=== PATIENT | female | born 1945 | race Caucasian/White ===

== ENCOUNTER 2021-09-27 17:15 | Emergency (ER) | payer MEDICARE, SELFPAY ==
[2021-09-27 17:17] VITALS: BP 173/83; PULSE 92; RESP 20; TEMP 36.9; O2SAT 97
--- NOTE | 2021-09-27 17:54 | ED.EYEPROB ---
HPI - Eye Problem General Chief complaint: Eye Problems Stated complaint: visual disturbance Time Seen by Provider: 09/27/21 17:32 History of Present Illness HPI Narrative: 76-year-old female presenting here with sudden visual field loss in right eye, started about an hour ago, denies any headache, states that she just feels a little bit of irritation in her eye. Denies any recent trauma. Has had a history of cataract surgery. No other symptoms, no focal numbness or weakness. chief complaint: vision change Related Data Home Medications Medication Instructions Recorded Confirmed aspirin 81 mg tablet,delayed 81 mg PO DAILY 09/10/21 release cetirizine 10 mg tablet (Zyrtec) 10 mg PO DAILY PRN 09/10/21 levothyroxine 88 mcg capsule 88 mcg PO DAILY 09/10/21 khvytdzhzoun-Bb-cvmc-minerals 18 tablet PO 09/10/21 mg-0.4 mg tablet omeprazole 40 mg capsule,delayed 40 mg PO DAILY 09/10/21 release pravastatin 20 mg tablet 20 mg PO DAILY 09/10/21 prednisone 1 mg tablet 3 mg PO DAILY 09/10/21 Allergies Allergy/AdvReac Type Severity Reaction Status Date / Time latex Allergy Intermediate Unverified 09/02/14 11:23 adhesive Allergy Unknown RASH Verified 09/02/14 11:23 Beef Containing Products Allergy Unknown Hives / Verified 09/02/14 11:23 Red Face BEANS Allergy Unknown Hives / Uncoded 08/06/10 07:31 Red Face OATS Allergy Unknown HIVES Uncoded 08/06/10 07:31 PEARS Allergy Unknown Diarrhea Uncoded 08/06/10 07:31 Review of Systems Review of Systems: CONST: No fever. HEAD: No head trauma EYES: Loss of vision right eye ENT: No facial numbness C/V: No chest pain RESP: No cough GI: No nausea/vomiting M/S: No weakness SKIN: No rash. NEURO: [No focal numbness or weakness] PSYCH: [No depression] [facility] Past Medical History Medical History Arthritis GERD (gastroesophageal reflux disease) Osteoporosis Thyroid disorder Surgical History Surgical History H/O cataract extraction H/O tubal ligation S/P hernia repair Status post bilateral knee replacements Family History Family History Father Family history of diabetes mellitus in first degree relative Family history of lung cancer Acute myocardial infarction Mother Family history of lung cancer Acute myocardial infarction Sibling Cancer Other Diabetes mellitus Family history of cardiovascular disease Hypertension Social History Social History Smoking status: Never smoker Alcohol intake: current Exam Narrative: EXAMINATION OF ORGAN SYSTEMS/BODY AREAS: Constitutional: Vital signs per nursing GENERAL:[No acute distress, non-toxic appearing.] HEAD: Normal with no signs of head trauma. EYES: EOMI, right eye conjunctiva slightly more injected, left eye VA 20/25, right eye VA 20/80, OD loss of lower half of visual field, IOP 22, PERRL ENT: Hearing grossly intact LUNGS: Nonlabored breathing. HEART: [Regular rate and rhythm] ABD: Nondistended EXT: Normal range of motion NEURO: [Alert and oriented x 3. No gross focal sensory or strength deficits.] PSYCH: Normal affect Course Consultations Consultation #1: D/w Dr. Albert goodwin at [facility] who would like pt tfr for eval and likely surgery. Vital Signs Vital signs: Vital Signs Temperature 98.5 F 09/27/21 17:17 Pulse Rate 92 09/27/21 17:17 Respiratory Rate 20 09/27/21 17:17 Blood Pressure 173/83 H 09/27/21 17:17 Pulse Oximetry 97 09/27/21 17:17 Oxygen Delivery Room Air 09/27/21 17:17 Temperature 98.5 F 09/27/21 17:17 Pulse Rate 92 09/27/21 17:17 Respiratory Rate 20 09/27/21 17:17 Blood Pressure 173/83 H 09/27/21 17:17 Pulse Oximetry 97 09/27/21 17:17 Oxygen Delivery Room Air 09/27/21 17:17 Transfer Transfered to: [facility]
--- NOTE | 2021-09-27 18:39 | PC.NURSE ---
Pt transferred to [facility] by private vehicle. EMS transport offered and refused.
--- NOTE | 2021-09-27 18:39 | PC.NURSE ---
Patient care report called over to [facility] to EDI Jackson. EDI Jackson denies any questions at this time. Patient consents to transfer. Packet with paperwork sent with patient to take to [facility]. Patient is going POV.
== END 2021-09-27 18:42 | disposition short-term general hospital (02) ==
PROVIDERS: Emergency Provider Emergency Medicine; PCP Internal Medicine
DX: H33.21 Serous retinal detachment, right eye (principal); Z79.82 Long term (current) use of aspirin
CPT/HCPCS: 99281

== ENCOUNTER 2023-02-03 16:09 | Outpatient (CLI) | payer MEDICARE, SELFPAY ==
--- NOTE | ~2023-02-03 | MM_ITS ---
EXAMINATION: MM screening megan BI w radha HISTORY: Screening mammogram TECHNIQUE: Craniocaudal and mediolateral oblique 3-D tomosynthesis images were obtained and synthetic 2-D images were generated. CAD analysis was submitted and interpreted. COMPARISON: No prior mammogram is available for comparison at this institution. BREAST PARENCHYMAL COMPOSITION: The breasts are heterogeneously dense, which may obscure small masses . FINDINGS: RIGHT BREAST: There are grouped calcifications in the middle third of the lower breast. There is also an asymmetry in the middle third of inner breast 6 cm from the nipple on the craniocaudal view. LEFT BREAST: No suspicious mass, calcification, or architectural distortion are identified to suggest malignancy. IMPRESSION: 1. Right breast findings which may represent the patient's baseline however no comparison is currentl y available. 2. Comparison with prior mammograms is necessary. BI-RADS Category 0: Incomplete: Needs comparison with prior mammograms. Reviewed, dictated and finalized at location A. IMPRESSION: 1. Right breast findings which may represent the patient's baseline however no comparison is currently available. 2. Comparison with prior mammograms is necessary. BI-RADS Category 0: Incomplete: Needs comparison with prior mammograms.
== END 2023-02-03 16:10 | disposition home or self-care (01) ==
PROVIDERS: PCP Internal Medicine; Visit Provider Clinical Nurse Specialist
DX: Z12.31 Encounter for screening mammogram for malignant neoplasm of breast (principal); R92.8 Other abnormal and inconclusive findings on diagnostic imaging of breast
CPT/HCPCS: 77063; 77067

== ENCOUNTER 2023-02-15 16:31 | Emergency (ER) | payer OTHER, MEDICARE, SELFPAY ==
--- NOTE | ~2023-02-15 | XR_ITS ---
EXAMINATION: XR foot RT min 3V DATE: 02/15/2023 17:46 INDICATION: Right foot pain. Fall. TECHNIQUE: 4 views of right foot were obtained. COMPARISON: None. FINDINGS: There is a bunionette. No fracture. There is mild osteoarthritis of first metatarsophalange al joint and some of the interphalangeal joints and midfoot joints. There are enthesophytes at the po sterior and plantar aspects of calcaneal tuberosity. IMPRESSION: 1. Polyarticular osteoarthritis. 2. Bunionette. Reviewed, dictated and finalized at location E.
--- NOTE | ~2023-02-15 | XR_ITS ---
EXAMINATION: XR knee RT min 4V DATE: 02/15/2023 17:45 INDICATION: Right knee swelling. Fall. TECHNIQUE: 4 views of right knee were obtained. COMPARISON: None. FINDINGS: There is a total right knee arthroplasty with patellar resurfacing in near-anatomic alignme nt. No fracture. No periprosthetic lucency to suggest loosening or infection. No knee joint effusion. IMPRESSION: 1. Total right knee arthroplasty in near-anatomic alignment. Reviewed, dictated and finalized at location E.
--- NOTE | ~2023-02-15 | XR_ITS ---
EXAMINATION: XR shoulder RT min 2V DATE: 02/15/2023 17:46 INDICATION: Right shoulder pain. Fall. TECHNIQUE: 4 views of right shoulder were obtained. COMPARISON: None. FINDINGS: There is superior subluxation of the humeral head with narrowing of the subacromial space, consistent with rotator cuff tear. No fracture. There is mild osteoarthritis of glenohumeral joint an d severe osteoarthritis of acromioclavicular joint. There is a small loose body in subacromial/subdel toid bursa. IMPRESSION: 1. Polyarticular osteoarthritis. 2. Rotator cuff tear. Reviewed, dictated and finalized at location E.
--- NOTE | ~2023-02-15 | XR_ITS ---
EXAMINATION: XR humerus RT DATE: 02/15/2023 17:46 INDICATION: Right upper arm pain. Fall. TECHNIQUE: 2 views of right humerus were obtained. COMPARISON: None. FINDINGS: Bone alignment is normal. No fracture. There is mild osteoarthritis of the elbow joint and glenohumeral joint and moderate osteoarthritis of the acromioclavicular joint. IMPRESSION: 1. Polyarticular osteoarthritis. Reviewed, dictated and finalized at location E.
[2023-02-15 16:38] VITALS: BP 174/70; PULSE 88; RESP 16; TEMP 36.6; O2SAT 97
--- NOTE | 2023-02-15 18:27 | ED.GENADULT ---
HPI - General Adult General Chief complaint: Fall Stated complaint: Rt knee rt shoulder pain Time Seen by Provider: 02/15/23 17:36 Source: patient Mode of arrival: ambulatory Limitations: no limitations History of Present Illness HPI narrative: This is a 78-year-old female who presents to the ED with chief complaint of a fall while at work today. She is coming ambulatory from home. She complains of right upper arm and shoulder pain as well as right knee pain. She also has a little bit of pain in the right foot. Reports that her shoe got caught on a mat and she fell forward landing on her right knee and hitting her right upper arm on a metal column. She reports bruising and swelling to the right upper arm and right knee. Reports that she was able to ambulate immediately and work the rest of her shift today. She reports remote history of knee replacement and wants to get this checked out. Denies any numbness, weakness or any further site of pain or injury. Denies head injury or blood thinners. Denies LOC. Related Data Home Medications Medication Instructions Recorded Confirmed aspirin 81 mg tablet,delayed 81 mg PO DAILY 09/10/21 09/30/22 release tqppfszaclhv-Lv-mwna-minerals 18 tablet PO 09/10/21 09/30/22 mg-0.4 mg tablet calcium acetate 667 mg tablet 667 mg PO ONCE 01/05/22 09/30/22 cetirizine 10 mg tablet (Zyrtec) 10 mg PO DAILY 01/05/22 09/30/22 Allergies Allergy/AdvReac Type Severity Reaction Status Date / Time latex Allergy Intermediate Rash Unverified 09/30/22 08:25 adhesive Allergy Unknown RASH Verified 09/30/22 08:25 Beef Containing Products Allergy Unknown Hives / Verified 09/30/22 08:25 Red Face BEANS Allergy Unknown Hives / Uncoded 09/30/22 08:25 Red Face OATS Allergy Unknown HIVES Uncoded 09/30/22 08:25 PEARS Allergy Unknown Diarrhea Uncoded 09/30/22 08:25 Review of Systems Review of Systems: All systems as dictated in [facility] Past Medical History Medical History Arthritis GERD (gastroesophageal reflux disease) History of retinal detachment Osteoporosis Thyroid disorder Surgical History Surgical History H/O cataract extraction H/O tubal ligation S/P hernia repair Status post bilateral knee replacements Family History Family History Father Family history of diabetes mellitus in first degree relative Family history of lung cancer Acute myocardial infarction Mother Family history of lung cancer Acute myocardial infarction Sibling Cancer Other Diabetes mellitus Family history of cardiovascular disease Hypertension Social History Social History Smoking status: Never smoker Alcohol intake: current Exam Narrative: GENERAL: Well-appearing, well-nourished, and in no acute distress. HEAD: Normocephalic, atraumatic. EYES: PERRLA and EOMI. ENT: Nares clear, no rhinorrhea or epistaxis. Mucous membranes moist. Oropharynx without tonsillar hypertrophy exudate or other lesions. NECK: Supple. No adenopathy or masses. CHEST: No respiratory distress. Clear to auscultation. No wheezes rales or rhonchi HEART: Regular rate and rhythm. No murmur heard. Normal peripheral pulses. ABDOMEN: Soft, nontender, nondistended, normal active bowel sounds. MSK: Mild tenderness to the right upper arm associated with moderate bruising. Near full range of motion of the right shoulder Mild tenderness to the right knee and right foot as well. No gross deformities throughout the extremities. Good range of motion throughout the right lower extremity. Compartments soft. Neurovascularly intact distally. SKIN: Warm, dry, no rash. NEURO: Alert and oriented x3. No focal deficits. PSYCH: Normal mood and affect. Course Vital Signs Vital signs: Vital Signs
== END 2023-02-15 18:36 | disposition home or self-care (01) ==
PROVIDERS: Emergency Provider Physician Assistant; PCP Internal Medicine
DX: S49.91XA Unspecified injury of right shoulder and upper arm, initial encounter (principal); S89.91XA Unspecified injury of right lower leg, initial encounter; E07.9 Disorder of thyroid, unspecified; K21.9 Gastro-esophageal reflux disease without esophagitis; M81.0 Age-related osteoporosis without current pathological fracture; Z98.49 Cataract extraction status, unspecified eye; Z96.653 Presence of artificial knee joint, bilateral; Z79.82 Long term (current) use of aspirin; W01.198A Fall on same level from slipping, tripping and stumbling with subsequent striking against other object, initial encounter
CPT/HCPCS: 73030; 73060; 73564; 73630; 99284

== ENCOUNTER 2023-03-12 09:50 | Outpatient (CLI) | payer MEDICARE, SELFPAY ==
--- NOTE | ~2023-03-12 | DEXA_ITS ---
Bone Density Report Name: JUSTIN BEACH Age: 78 Sex: Female Ethnicity: White Date of : 1945 Indication: postmenopausal osteoporosis; height loss; history of glucocorticoids; prior fracture; Referring Provider: MERARY MEJIAS Study: Bone densitometry was performed. Exam Date: March 12, 2023 Accession number: [id number] Bone Density: Region BMD T-score Z-score Classification AP Spine(L1, L2) 1.132 1.4 3.8 Normal Femoral Neck (Left) 0.519 -3.0 -0.8 Osteoporosis Total Hip (Left) 0.620 -2.6 -0.7 Osteoporosis Femoral Neck (Right) 0.489 -3.2 -1.1 Osteoporosis Total Hip (Right) 0.540 -3.3 -1.4 Osteoporosis Total Hip Mean 0.580 -3.0 -1.1 Osteoporosis World Health Organization criteria for BMD impression classify patients as: Normal (T-score at or above -1.0), Osteopenia (T-score between -1.0 and -2.5), or Osteoporosis (T-score at or below -2.5). 10-year Fracture Risk: FRAX not reported because: Some T-score for Spine Total or Hip Total or Femoral Neck at or below -2.5 Previous Exams: Region Exam Age BMD T-score BMD Change BMD Change Date g/cm2 vs Baseline vs Previous AP Spine (L1-L2) 03/12/2023 78 1.132 1.4 0.231 (25.6%)* 0.231 (25.6%)* 08/15/2014 69 0.901 -0.7 Total Hip(Left) 03/12/2023 78 0.620 -2.6 -0.067 (-9.8%) -0.067 (-9.8%) 08/15/2014 69 0.687 -2.1 Total Hip(Right) 03/12/2023 78 0.540 -3.3 -0.098 (-15.3% -0.098 (-15.3% 08/15/2014 69 0.638 -2.5 *Denotes significance at 95% confidence level, LSC for AP Spine = 0.022 g/cm2, LSC for Total Hip = 0.027 g/cm2 Clinical Information Provided by Patient: Has had a low trauma fracture Has taken Glucocorticoids Has used the following medications: Vitamin D, Calcium Patient maximum height was 64 Menopause Age: 51 Onset of menses at age 13 Number of children 2 Impression: The patient has established osteoporosis, based on the Right Total Hip T-score and the existence of a prior fracture. The patient has risk factors, including: previous fracture, history of glucocorticoid therapy. The BMD for the Total Hip(Left) decreased, changing by -9.8% since the last DXA exam. The BMD for the Total Hip(Right) decreased, changing by -15.3% since the last DXA exam. Discussion: HIGH RISK OF FRACTURE. BONE DENSITY IS UNDESIRABLY LOW AT ONE OR MORE SKELETAL SITES, CONSISTENT WITH POSTMENOPAUSAL OSTEOPOROSIS. This patient's lowest T-score, in a patient who has previously frac
== END 2023-03-12 09:51 | disposition home or self-care (01) ==
PROVIDERS: PCP Internal Medicine; Visit Provider Clinical Nurse Specialist
DX: M81.0 Age-related osteoporosis without current pathological fracture (principal); Z78.0 Asymptomatic menopausal state
CPT/HCPCS: 77080

== ENCOUNTER → 2023-03-29 07:43 | Outpatient (CLI) | payer MEDICARE, SELFPAY ==
--- NOTE | ~2023-03-29 | MMUS_ITS ---
EXAMINATION: MM diagnostic megan RT w radha, US breast RT limited HISTORY: Asymmetry in the middle third of inner breast 6 cm from the nipple on screening craniocaudal view of 02/03/2023 Grouped calcifications in middle third of inner breast 6 cm from nipple TECHNIQUE: Additional 3-D tomosynthesis images of the right breast were performed and synthetic 2-D i mages were generated. CAD analysis was submitted and interpreted. High resolution lower inner quadran t right breast ultrasound was performed. COMPARISON: 02/03/2023 and 11/06/2020 bilateral screening mammogram examinations FINDINGS: MAMMOGRAPHIC FINDINGS: There are chronic scattered calcifications of the right breast including numerous benign calcified mi crohematomas and multiple punctate and small circular microcalcifications. No linear or branching mariam picious microcalcifications are noted. The appearance is largely similar to that of 11/06/2020. No suspicious mass is evident. There is heterogeneously dense stroma however, which may obscure kacey s. Lower inner quadrant breast ultrasound examination was performed. ULTRASOUND: 3:00 9 cm from nipple: Parallel circumscribed hypoechoic 1.5 x 4.9 x 5.9 mm hypoechoic lesion is note d within subcutaneous adipose tissue cannot without internal vascularity or posterior shadowing, mary gn in appearance. Probable cysts are noted 5:00 4 cm from the nipple and 6:00 4 cm from the nipple, measuring approxima tely 3.5 mm maximal dimension. 6 month diagnostic right mammogram and right breast ultrasound follow- up are recommended. IMPRESSION: 1. Probable benign findings 2. 6 month diagnostic right mammogram and right breast ultrasound follow-up are recommended BI-RADS category 3, probably benign findings. Reviewed, dictated and finalized at location A. IS COUNSELOR IMPRESSION: 1. Probable benign findings 2. 6 month diagnostic right mammogram and right breast ultrasound follow-up are recommended BI-RADS category 3, probably benign findings.
== END ==
PROVIDERS: PCP Clinical Nurse Specialist; Visit Provider Clinical Nurse Specialist
DX: R92.8 Other abnormal and inconclusive findings on diagnostic imaging of breast (principal)
CPT/HCPCS: 76642; 77061; 77065; G0279

== ENCOUNTER → 2023-05-18 09:57 | Outpatient (CLI) | payer MEDICARE, SELFPAY ==
--- NOTE | ~2023-05-18 | XR_ITS ---
XR hip LT min 2V DATE: 05/18/2023 10:20 INDICATION: Chronic left hip pain TECHNIQUE: AP and lateral views of left hip COMPARISON: None FINDINGS: Posterior lumbar spinal fusion hardware is noted at L5. Severe degenerative disc disease at L5-S1. Degenerative change at the pubic symphysis. Normal alignment at the pubic symphysis and left sacroili ac joint. No fracture or dislocation, avascular necrosis or bone destruction of the left hip. Left hip joint sp genie appears relatively preserved. Osteopenia. IMPRESSION: Posterior lumbar surgical fusion hardware Severe degenerative disease at L5-S1 Osteopenia No fracture or dislocation or bone destruction of left hip Reviewed, dictated and finalized at location B. [employer]
== END ==
PROVIDERS: PCP Internal Medicine; Visit Provider Clinical Nurse Specialist
DX: M25.552 Pain in left hip (principal); M51.37 Other intervertebral disc degeneration, lumbosacral region; M85.88 Other specified disorders of bone density and structure, other site; Z98.1 Arthrodesis status
CPT/HCPCS: 73502

== ENCOUNTER 2023-08-23 09:06 | Outpatient (CLI) | payer MEDICARE, SELFPAY ==
--- NOTE | ~2023-08-23 | XR_ITS ---
EXAMINATION: XR lumbar spine 2-3V DATE: 08/23/2023 09:29 INDICATION: Low back pain, unspecified. TECHNIQUE: 3 views of lumbar spine were obtained. COMPARISON: None. FINDINGS: There is 19 degrees levoscoliosis of lumbar spine. There is 4 mm retrolisthesis of L1 on L2 and L2 on L3 and 3 mm anterolisthesis of L3 on L4. There are changes of posterior fusion procedure f rom L3 to L5 with pedicle screws. There is mild chronic anterior wedging of L1 vertebral body. There is severely decreased disc height at L1-L2 and L2-L3, moderately decreased disc height at L3-L4, and severely decreased disc height at L4-L5 and L5-S1. There are laminectomies at L3 and L4. There is mul tilevel severe facet joint osteoarthritis. There are surgical clips in the abdomen. IMPRESSION: 1. Severe lumbar spondylosis. 2. Lumbar levoscoliosis. 3. Posterior fusion procedure from L3 to L5. Reviewed, dictated and finalized at location E.
== END 2023-08-23 09:07 ==
PROVIDERS: PCP Internal Medicine; Visit Provider Clinical Nurse Specialist
DX: M43.06 Spondylolysis, lumbar region (principal); M41.86 Other forms of scoliosis, lumbar region; Z98.1 Arthrodesis status
CPT/HCPCS: 72100

== ENCOUNTER 2023-10-04 07:55 | Outpatient (CLI) | payer MEDICARE, SELFPAY ==
--- NOTE | ~2023-10-04 | MMUS_ITS ---
EXAMINATION: MM diagnostic megan RT w radha, US breast RT complete HISTORY: Follow-up right breast masses TECHNIQUE: Additional 3-D tomosynthesis images of the right breast were performed and synthetic 2-D i mages were generated. CAD analysis was submitted and interpreted. High resolution complete right kaye st ultrasound was performed. COMPARISON: Comparison to multiple prior studies sequentially, with oldest reviewed study dated 11/2020. BREAST PARENCHYMAL COMPOSITION: Dense: The breasts are heterogeneously dense, which may obscure small masses FINDINGS: MAMMOGRAPHIC FINDINGS: There are no suspicious masses, calcifications or architectural distortion in the right breast to sug gest malignancy. ULTRASOUND: Complete US of all 4 quadrants of the right breast and retroareolar region was reviewed. Multiple sma ll cysts are identified in the right breast. There are no suspicious masses to suggest malignancy. IMPRESSION: 1. No evidence for malignancy in the right breast. Benign findings. 2. Routine yearly screening mammogram and regular clinical breast examination are recommended. BI-RADS Category 2: Benign finding(s). Reviewed, dictated and finalized at location B. IMPRESSION: 1. No evidence for malignancy in the right breast. Benign findings. 2. Routine yearly screening mammogram and regular clinical breast examination a re recommended. BI-RADS Category 2: Benign finding(s).
== END 2023-10-04 07:56 ==
LOC: MICIMG 07:56
PROVIDERS: PCP Internal Medicine; Visit Provider Clinical Nurse Specialist
DX: R92.8 Other abnormal and inconclusive findings on diagnostic imaging of breast (principal)
CPT/HCPCS: 76641; 77061; 77065; G0279

== ENCOUNTER 2023-10-04 12:33 | Outpatient (CLI) | payer MEDICARE, SELFPAY ==
--- NOTE | ~2023-10-04 | XR_ITS ---
[id number] Ordering provider: JAVIER Domínguez History: . R07.81 - Pleurodynia . Comparison: None. FINDINGS: BONES: No acute right rib fracture or fracture of the visualized osseous structures. LUNGS: No effusions or infiltrates. No pneumothorax. SOFT TISSUES:Sliding hiatus hernia. Postoperative changes in the lumbar spine with degenerative changes. IMPRESSION: No right rib fracture (Note: subtle/nondisplaced rib fractures can be occult on plain films and if th ere is continued clinical suspicion for rib fracture, recommend follow up CT chest). Reviewed, dictated and finalized at location A. IMPRESSION: No right rib fracture (Note: subtle/nondisplaced rib fractures can be occult on plain films and if there is continued clinical suspicion for rib fracture, rec ommend follow up CT chest).
== END 2023-10-04 12:34 ==
LOC: MICIMG 12:34
PROVIDERS: PCP Clinical Nurse Specialist; Visit Provider Clinical Nurse Specialist
DX: R07.81 Pleurodynia (principal)
CPT/HCPCS: 71101

== ENCOUNTER 2024-03-27 13:34 | Outpatient (CLI) | payer MEDICARE, SELFPAY ==
--- NOTE | ~2024-03-27 | XR_ITS ---
EXAMINATION: XR sacroiliac jt inj w imag LT DATE: 03/27/2024 14:30 INDICATION: Sacrococcygeal disorder TECHNIQUE: A time-out was performed to verify the patient's name, date of , and procedure to e performed. The procedure including the risks, benefits, and alternatives was discussed with the pat mely. Risks discussed included bleeding and infection. The patient understood the risks and agreed to proceed. The patient was placed prone. The skin overlying the left sacroiliac joint was prepped and draped in usual sterile fashion. Anesthetic was administered with 1% lidocaine subcutaneously. A 22 G needle was advanced under fluoroscopic guidance into the joint. Injection of 1 mL of Omnipaque 24 0 confirmed intra-articular position of the needle. Subsequently, injectate consisting of 3 mL of a 2:1 mixture of 0.5% Marcaine: 80 mg/mL Depo-Medrol for scoliosis of 80 mg Depo-Medrol was instilled. Washout of contrast was seen confirming intra-articular administration. The needle was removed and th e entry site was cleaned and dressed. There were no immediate complications. Fluoroscopy exposure ti me was 0.2 minutes. The total number of images was 3. Total DAP was 1.267 Gycm^2 FINDINGS: Real-time fluoroscopy demonstrates the needle and contrast in the left sacroiliac joint. Manpreet valenciant's pain prior to procedure:3/10. Patient's pain following the procedure: 0/10. IMPRESSION: 1. Successful left sacroiliac joint injection of local anesthetic and steroid with resolution of the patient's presenting pain. Reviewed, dictated and finalized at location A. LTY WORKER IMPRESSION: 1. Successful left sacroiliac joint injection of local anesthetic and steroid w ith resolution of the patient's presenting pain.
== END 2024-03-27 13:35 | disposition home or self-care (01) ==
LOC: ANHIMG 13:36
PROVIDERS: PCP Internal Medicine; Visit Provider Nurse Practitioner Family
DX: M53.3 Sacrococcygeal disorders, not elsewhere classified (principal); G89.29 Other chronic pain
CPT/HCPCS: 27096; G0260; J1010; Q9966

== ENCOUNTER 2024-05-22 13:20 | Outpatient (CLI) | payer MEDICARE, SELFPAY ==
--- NOTE | ~2024-05-22 | MM_ITS ---
EXAMINATION: MM screening megan BI w radha HISTORY: Screening TECHNIQUE: Craniocaudal and mediolateral oblique 3-D tomosynthesis images were obtained and synthetic 2-D images were generated. CAD analysis was submitted and interpreted. COMPARISON: Comparison to multiple prior studies sequentially, with oldest reviewed study dated 08/2022. BREAST PARENCHYMAL COMPOSITION: Dense: The breasts are heterogeneously dense, which may obscure small masses FINDINGS: No significant change to benign-appearing bilateral breast calcifications. There is no evid ence of suspicious mass, calcification, or architectural distortion to suggest malignancy in either b reast. There has been no suspicious interval change. IMPRESSION: 1. No mammographic evidence of malignancy. 2. Recommend routine screening mammography in one year. BI-RADS Category 2: Benign finding(s). Reviewed, dictated and finalized at location A. NTIFIC PHOTOGRAPHER
== END 2024-05-22 13:21 | disposition home or self-care (01) ==
LOC: MICIMG 13:21
PROVIDERS: PCP Internal Medicine; Visit Provider Clinical Nurse Specialist
DX: Z12.31 Encounter for screening mammogram for malignant neoplasm of breast (principal)
CPT/HCPCS: 77063; 77067

== ENCOUNTER 2024-12-19 07:27 | Outpatient (CLI) | payer MEDICARE, SELFPAY ==
--- NOTE | ~2024-12-19 | XR_ITS ---
Clinical Indication: Cough PA and lateral views of the chest: Comparison: 11/12/2013 Findings: The lungs are clear, without evidence of focal consolidation or pleural effusion. Cardiomediastinal silhouette is within normal limits. Probable small hiatal hernia. Osseous structures intact. Impression: Clear lungs. Probable small hiatal hernia. Reviewed, dictated and finalized at location . Impression: Clear lungs. Probable small hiatal hernia.
== END 2024-12-19 07:28 | disposition home or self-care (01) ==
PROVIDERS: PCP Internal Medicine; Visit Provider Clinical Nurse Specialist
DX: R05.9 Cough, unspecified (principal)
CPT/HCPCS: 71046

== ENCOUNTER 2025-01-12 09:08 | Outpatient (CLI) | payer MEDICARE, SELFPAY ==
--- NOTE | ~2025-01-12 | XR_ITS ---
X-rays right knee Indication: Pain, M25.561 Comparison: X-rays 02/15/2023 Technique: 3 views right knee Findings/Impression: No acute abnormality- 1. Prosthesis intact without periprosthetic fracture or lucency. 2. No joint effusion. Reviewed, dictated and finalized at location R.
--- OUTSIDE RECORDS SUMMARY | 2025-01-12 09:12 | XMS_ITS | Patient Health Record ---
Author Organization [facility], Address [address] [facility] [address] [place] [address] Care Team Providers Care Bounty Trapper Name Role Phone Anaid WARNER, [facility] Primary Care Provider Rodolfo Palma Unavailable [phone] Reason For Referral No Information Medications Medication SIG (Take, Route, Frequency, Duration) Notes Start Date End Date Status Levothyroxine Sodium 88 MCG 1 tablet Ora lly Once a day Active ZyrTEC 5 MG 1 tablet Orally Once a day Active Omeprazole 20 MG 2 capsules Orally On ce a day Active Vitamin D3 5000 UNIT Orally Once a day Active Actonel 150 MG 1 tablet Orally Active Pravastatin Sodium 10 MG 1 tablet Orally Once a day Active predniSONE 1 MG Orally Acti ve Social History Tobacco Use: Social History Observation Description Date Details (start date - stop date) Never Smoker NA - NA Tobacco Use/Smoking Question Answer Notes Smoking Status: nonsmoker Tobacco use other than smoking: Question Answer Notes Are you an other tobacco user? No Problems Problem Type SNOMED Code ICD Code Onset Dates Problem Status W/U Status Risk Notes Problem Obesity (069846637) Other obesity (E66.8) Active confirmed Problem Arthralgia of the pelvic region and thigh (066226136) Pain in right hip (M25.551) Active confirmed Problem Pain of left hip joint (finding) (253919267450538 ) Pain in left hip (M25.552) Active confirmed Problem Pain of right knee region (finding) (841389409582194 ) Pain in right knee (M25.561) Active confirmed Problem Cervicalgia (31313148) Cervicalgia (M54.2) Active confirmed Problem Low back pain (072535457) Low back pain (M54.5) Active confirmed Plan Of Treatment Pending Test Test Name Order Date THERAPEUTIC EXERCISES TO ONE OR MORE AREAS FOR STRENGTH & ENDURANCE, ROM, & FLEXIBILITY 11/28/2015 MANUAL THERAPY 11/28/2015 SELF CARE MNGMENT TRAINING 11/28/2015 Insurance Providers Payer Name Payer Address Payer Phone Subscriber Number Group Number Insured Name Patient Relationship to Insured Coverage Start Date Coverage End Date [place] [id number] Breanna Adame Self - patient is the insured [facility] [address] [place], [place] [id number] Breanna Adame Self - patient is the insured Medical (General) History Medical History History ICD Code Back Problems High cholesterol Joint Disorder Osteoporosis Pneumonia Thyroid Disorder Surgical History Surgery Date(Month/Year) Lump removed- Right Breast 1984 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
--- OUTSIDE RECORDS SUMMARY | 2025-01-12 09:12 | XMS_ITS | Clinical Summary ---
Author Organization [facility] Address [address] [place] [address] Care Team Providers Care Rx Specialist Name Role Phone Ata Rivers DO Primary Care Provider [phone] Allergies Active Allergy Reactions Criticality Noted Date Comments Adhesive Rash Medium 03/06/2024 Latex Rash Medium 09/27/2021 Medications BinaxNOW COVID-19 Ag Self Test kit 2 Active levothyroxine (SYNTHROID) 88 mcg tablet daily Active omeprazole (PriLOSEC) 40 mg capsule daily 6 Active pravastatin (PRAVACHOL) 20 mg tablet daily Active multivit with minerals/lutein (MULTIVITAMIN 50 PLUS ORAL) multivitamin Act db ADULT LOW DOSE ASPIRIN ORAL 5 Active cetirizine (ZyrTEC) 10 mg tablet 7 Active cholecalciferol (VITAMIN D-3) 90052 unit capsule Take 1 capsule (10,000 Units total) by mouth daily 70mcg Active amoxicillin 500 mg capsule TAKE FOUR CAPSULES BY MOUTH ONE HOUR BEFORE APPOINTMENT 4 Active UNABLE TO FIND Calcium 900 mg Active biotin 1 mg tablet Take 1 tablet (1,000 mcg total) by mouth daily Active lisinopriL (PRINIVIL,ZESTR IL) 2.5 mg tablet Take 1 tablet (2.5 mg total) by mouth daily 90 tablet 3 5 08/22/19 26 Active Active Problems Problem Noted Date Diagnosed Date Polymyalgia rheumatica syndrome 08/19/2023 Current chronic use of systemic steroids 04/19/2 024 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 Does have mild PEE as well. - Recommended ATs to see if symptoms improve. If remains bothered at next visit and ADLs impacted, can consider referral to retina for PPV OS. RTC 1 year with [facility] (to maintain same provider) Assessment & Plan (10/22/2022 8:39 AM CDT): - Symptomatic; patient bothered by intermittent blurriness that may be syneresis, less likely dry eye or other ocular surface issue - Discussed possibility of referral back to Retina for consideration of PPV OS, but she is still able to accomplish all ADLs without significant difficulty, and wishes to observe instead Pseudophakia, both eyes 09/28/2021 Overview (09/28/2021): History of multifocal PCIOL OU, high myopia prior to CEIOL. Assessment & Plan (10/22/2022 8:39 AM CDT): - Needs OTC readers now for small print, but overall doing well - Monitor Assessment & Plan (09/28/2021 1:39 PM CDT): History of multifocal PCIOL OU, high myopia prior to CEIOL. Retinal detachment of both eyes with multiple br eaks 09/27/2021 Overview (10/22/2022): OD: History of macula-involving RRD s/p PPV/EL/AFx/14% C3F8 on 09/27/21 OS: History of multiple retinal breaks and atrophic holes, and with superior far peripheral subretinal fluid s/p laser barricade/retinopexy on 09/27/21 Assessment & Plan (10/24/2023 11:49 AM CDT): - Doing well OU today, attached OU with good BCVA. - Return precautions discussed RTC 1 year with [facility] for DFEx OU Assessment & Plan (10/22/2022 8:37 AM CDT): - Doing well OU today, without new RT or SRF of either eye. Good laser barricade near-360 OU. Excellent BCVA OU. - Monitor; DFEx 1 year The patient was instructed to call immediately if she experiences worsening vision, flashes, floaters, curtains, or any other vision changes. Assessment & Plan (10/22/2022 8:35 AM CDT): >>ASSESSMENT AND PLAN FOR RETINAL DETACHMENT OF BOTH EYES WITH MULTIPLE BREAKS WRITTEN ON 02/10/2022 2:58 PM BY HEATHER PATEL, DO S/p PPV/EL/AFx/14% C3F8 for OD on 09/27/21 for macula involving RRD POM3. Gas resolved. Pt doing well. intraocular pressure (IOP) was initially found to be elevated both eyes (OU) on tonopen. Pt was given drops both eyes (OU), and on re-check w/ applanation intraocular pressure (IOP) was at 13/15. Initial readings were likely an error given elevated intraocular pressure (IOP) both eyes (OU), and no reason on exam for elevated intraocular pressure (IOP)/no history of elevated intraocular pressure (IOP). Can now f/u in [place] and return to retina PRN. >>ASSESSMENT AND PLAN FOR RETINAL DETACHMENT, LEFT WRITTEN ON 02/10/2022 2:02 PM BY HEATHER PATEL, DO Multiple retinal breaks and atrophic holes, and with superior far peripheral subretinal fluid s/p laser barricade/retinopexy for OS on 09/27/21 in the OR Stable today, good laser barricade. Will continue to observe in [place] Assessment & Plan (11/11/2021 12:47 PM CDT): S/p PPV/EL/AFx/14% C3F8 for OD on 09/27/21 for macula involving RRD POM1 doing well. Off drops Return 2 months for DFE OU, OCT Mac OU Assessment & Plan (10/22/2022 8:35 AM CDT): >>ASSESSMENT AND PLAN FOR RETINAL DETACHMENT OF BOTH EYES WITH MULTIPLE BREAKS WRITTEN ON 10/07/2021 4:34 PM BY TANGELA DEWEY MD S/p PPV/EL/AFx/14% C3F8 for OD on 09/27/21 for macula involving RRD (Woods) POW1 doing well, good gas fill, retina attached. -- taper pred acetate 3-2-1 weekly -- ok to stop ofloxacin PRN positioning, okay to sleep on either side at night. RTC 1 month >>ASSESSMENT AND PLAN FOR RETINAL DETACHMENT, LEFT WRITTEN ON 10/07/2021 4:27 PM BY TANGELA DEWEY MD Multiple retinal breaks and atrophic holes, and with superior far peripheral subretinal fluid s/p laser barricade/retinopexy for OS on 09/27/21 in the OR Stable today, good laser barricade. Will continue to observe. Assessment & Plan (10/22/2022 8:35 AM CDT): >>ASSESSMENT AND PLAN FOR RETINAL DETACHMENT OF BOTH EYES WITH MULTIPLE BREAKS WRITTEN ON 09/28/2021 1:42 PM BY SCAR WOODS MD S/p PPV/EL/AFx/14% C3F8 for OD on 09/27/21 for macula involving RRD (Woods) POD1 doing well, good gas fill, retina attached. Has some AC inflammation, will use PF 6x/day and oflox QID. Face down positioning for the next 1 week, then okay to sleep on either side. Altitude/return precautions discussed. >>ASSESSMENT AND PLAN FOR RETINAL DETACHMENT, LEFT WRITTEN ON 09/28/2021 1:43 PM BY SCAR WOODS MD Multiple retinal breaks and atrophic holes, and with superior far peripheral subretinal fluid s/p laser barricade/retinopexy for OS on 09/27/21 in the OR Doing well, good laser barricade. Will continue to observe. Immunizations Immunization Administration Dates Next Due ZOSTER LIVE 07/01/2012 Surgical History Surgery Date Site/Laterality Comments EPIDURAL INJECTION LUMBOSACRAL 11/01/2012 N/A EPIDURAL INJECTION LUMBOSACRAL 09/21/2012 N/A EPIDURAL INJECTION LUMBOSACRAL 03/20/2015 N/A EPIDURAL INJECTION LUMBOSACRAL 03/03/2015 N/A CATARACT EXTRACTION TUBAL LIGATION HERNIA REPAIR REPLACEMENT TOTAL KNEE BILATERAL Medical History Medical History Date Comments Thyroid disease Arthritis HLD (hyperlipidemia) Heart murmur GERD (gastroesophageal reflux disease) Hx of retinal detachment Bursitis right knee Trigger finger, right middle finger Moderate aortic stenosis Family History Medical History Relation Name Comments Diabetes Father Heart attack Father Lung cancer Father Heart attack Mother Lung cancer Mother Alcohol abuse Son Relation Name Status Comments Father Mother Son Social History Tobacco Use Types Packs/Day Years Used Date Smoking Tobacco: Never Smokeless Tobacco: Never Tobacco Cessation:Counseling Given: Not Answered AUDIT-C Answer Date Recorded Q1: How often do you have a drink containing alc ohol? Monthly or less 09/27/2021 Q2: How many drinks containi ng alcohol do you have on a typical day when you are drinking? 1 or 2 09/27/2021 Q3: How often do you have si x or more drinks on one occasion? 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 Gender Identity Not on file Sexual Orientation Not on file Obstetrics History Last Filed Vital Signs Vital Sign Reading Time Taken Comments Blood Pressure 143/78 08/28/2024 8:59 AM CDT Pulse 91 08/28/2024 8:59 AM CDT Temperature 36.3 C (97.4 F) 08/28/2024 8:59 AM CDT Respiratory Rate 17 09/28/2021 2:30 AM CDT Oxygen Saturation 97% 08/21/2024 11:45 AM CDT Inhaled Oxygen Concentration - - Weight 83.3 kg (183 lb 9.6 oz) 08/28/2024 8:59 A M CDT Height 162.6 cm (5' 4) 08/28/2024 8:59 AM CDT Body Mass Index 31.51 08/28/2024 8:59 AM CDT Plan of Treatment Health Maintenance Due Date Last Done Comments Depression Screening 1945 Osteoporosis Screening-Bone Density Scan 1945 DTaP/Tdap/Td Vaccine (1 - Tdap) 1957 Pneumococcal vaccine 65+ (1 of 1 - PCV) 01/26/1996 Well Visit 65+ 2011 Zoster Vaccine (2 of 3) 08/26/2012 07/01/2012 Fall Risk Assessment 09/27/2022 09/27/2021 Covid-19 Vaccine ( season) 12/31/202403/2022 Influenza Vaccine (#1) 2024 Hepatitis B Screening Completed 08/24/2023 Hepatitis C Screening Completed 08/24/2023 Procedures Procedure Name Priority Date/Time Associated Diagnosis Comments HEPATITIS C ANTIBODY Routine 08/24/2023 8:56 AM CDT Polymyalgia rheumatica syndrome High risk medication use from Last 3 Months or Most Recently Relevant to Health Maintenance Results * Hepatitis C antibody Blood (08/24/2023 8:56 AM CDT) [facility] Hep C Ab Non Reactive Non Reactive [facility] - 01 Comment: HCV antibody alone does not differentiate between previously resolved infection and active infection. Equivocal and Reactive HCV antibody results should be followed up with an HCV RNA test to support the diagnosis of active HCV infection. Blood 08/24/2023 8:56 AM CDT 08/24/2023 Narrative [facility] - 08/25/2023 11:13 AM CDT Performed at: [address] [place] [id number] Pocket Flap Creasing Machine Operator: Bg Hair PhD, Phone: [phone] us Yaneth Perdomo MD LAB MICROBIOLOGY - GENERAL OR DERABLES Final Result LABCO [facility] - 01 from Last 3 Months or Most Recently Relevant to Health Maintenance Insurance [facility] MEDICARE ADVANTAGE UHC MEDICARE ADVANTAGE Care Teams Rx Specialist Relationship Specialty Start Date End Date Ata Rivers DO PCP - General Internal Medicine 12/13/23
--- OUTSIDE RECORDS SUMMARY | 2025-01-12 09:12 | XMS_ITS | Patient Health Record ---
Author Organization [facility] Address [address] [facility]. [address] [place] [address] Care Team Providers Care Elementary Education Teacher Name Role Phone Ata Rivers DO Primary Care Provider Jonathan hennessy Reason For Referral No Information Plan Of Treatment No Information Insurance Providers Payer Name Payer Address Payer Phone Subscriber Number Group Number Insured Name Patient Relationship to Insured Coverage Start Date Coverage End Date Blue Access Choice PPO [address] [place] [address] [id number] Breanna Adame Self - patient is the insured
== END 2025-01-12 09:09 | disposition home or self-care (01) ==
PROVIDERS: PCP Internal Medicine; Visit Provider Clinical Nurse Specialist
DX: M25.561 Pain in right knee (principal)
CPT/HCPCS: 73562

== ENCOUNTER 2025-02-27 07:58 | Outpatient (CLI) | payer MEDICARE, SELFPAY ==
--- OUTSIDE RECORDS SUMMARY | 2025-02-26 10:15 | XMS_ITS | Encounter Summary ---
Author Organization [facility] Address [address] [place] [address] Care Team Providers Care Sound Recordist Name Role Phone Ata Rivers DO Primary Care Provider Reason for Referral * Procedure (Routine) - Authorized Specialty Diagnoses / Procedures Referred By Contac t Referred To Contact Diagnoses Severe aortic stenosis Procedures Pulmonary Function Test -External Beltran Sanchez MD [address] [place] [address] [address] [place] [address] Phone: tel: fax: Referral ID Status Reason Start Date Expiration Date V isits Requested Visits Authorized [id number] Authorized 02/26/2025 03/28/2026 1 1 * Cardiology (Routine) - Pending Review Specialty Diagnoses / Procedures Referred By Contac t Referred To Contact Diagnoses Severe aortic stenosis Procedures Transthoracic Echo (TTE) Complete W Doppler/CF Beltran Sanchez MD [address] [place] [address] [address] [facility] [address] [address] Phone: tel: fax: [facility] Card[facility] [address] [place] [address] [address] Phone: tel: fax: Referral ID Status Reason Start Date Expiration Date V isits Requested Visits Authorized [id number] Pending Review 02/26/2025 03/28/2026 1 1 Reason for Visit * Reason Comments Follow-up 6 mo f/u. Echo 02/06. 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 Gender Identity Not on file Sexual Orientation Not on file documented as of this encounter Last Filed Vital Signs Vital Sign Reading Time Taken Comments Blood Pressure 124/80 02/26/2025 10:00 AM CDT Pulse 97 02/26/2025 10:00 AM CDT Temperature - - Respiratory Rate - - Oxygen Saturation 97% 02/26/2025 10: 00 AM CDT Inhaled Oxygen Concentration - - Weight 79.7 kg (175 lb 11.2 oz) 025 10:00 AM CDT Height 162.6 cm (5' 4) 02/26/2025 10:0 0 AM CDT Body Mass Index 30.16 02/26/2025 10:00 AM CDT documented in this encounter Progress Notes * Beltran Sanchez MD - 02/26/2025 10:15 AM CDT [facility] C[facility] CHIEF COMPLAINT / REASON FOR CONSULT: Severe aortic stenosis HISTORY: Breanna Garcia is a 80 y.o. female with severe aortic stenosis, polymyalgia rheumatica, hypertension, and hyperlipidemia returns to follow up for her cardiac care. States that in the past month she has noted some exertional shortness of breath along with some exertional lightheadednessafter 4 hours of work at [employer]. Sometimes when she wakes up in the morning she gets some lightheadedness that resolves throughout the day. No syncopal events. No orthopnea. No chest discomfort. 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 Social: Denies tobacco use Family History: Mother had CAD requiring stents. Father had cardiac conditions Medications: Aspirin 81 mg p.o. daily Pravastatin 20 mg every evening Lisinopril 2.5 mg p.o. daily REVIEW OF SYSTEMS: GENERAL: As per HPI CVS: As per HPI HEME: No bruising, no bleeding PHYSICAL EXAMINATION: BP 124/80 (BP Location: Left arm, Patient Position: Sitting) Pulse 97 Ht 162.6 cm (5' 4) Wt 79.7 kg (175 lb 11.2 oz) SpO2 97% BMI 30.16 kg/m?? GENERAL: Alert, in no distress HEAD: Normocephalic and atraumatic EYES: Extraocular movement intact ENT: Unremarkable NECK: no jugular venous distention CHEST: Clear to auscultation, no wheezes, rales or rhonchi, symmetric air entry CARDIAC: Regular rate and rhythm, S1, S2 is soft but very audible. 4/6 crescendo decrescendo systolic murmur in upper sternal borders ABDOMEN: soft, nontender, no bruit EXTREMITIES: No edema PERIPHERAL PULSES: Peripheral pulses symmetrical SKIN: Warm and dry NEURO: Alert and oriented x 3 LABS: No results found for: CHOL No results found for: HDL No results found for: LDLCALC No results found for: TRIG No results found for: CHOLHDL No results found for: HGBA1C EK03/06/2024 EKG done in clinic today shows sinus rhythm with a ventricular rate of 85 beats per minute, inferior infarct pattern. CARDIAC IMAGING RESULTS REVIEW: Echo 12/2023: Severe concentric LVH. Moderate aortic stenosis. Mean gradient 25 peak velocity 3.22 m/sec,MOSES 1.3 cm2 01/2025: Moderate concentric LVH. Normal biventricular size and systolic function. Severe aortic stenosis. Mean gradient 36mmHg. Peak velocity 3.8m/s. MOSES 0.97cm2. Cardiac CT Stress Test Cardiac Monitors Cath ASSESSMENT/PLAN: 80 y.o. female with severe aortic stenosis, polymyalgia rheumatica, hypertension, and hyperlipidemia returns to follow up for her cardiac care Severe aortic stenosis -S2 is clearly auscultate on physical examination and hemodynamic numbers along with visual appearance of valve on echocardiogram suggests moderate rather than severe -Given the patient's symptoms, we have discussed proceeding with transesophageal echocardiogram versus repeat transthoracic echocardiogram in 3 months -At this time patient would like to proceed with a transthoracic echocardiogram in 3 months -If valve continues to appear more moderate rather than severe, we will proceed with a right and left heart catheterization to evaluate for severe obstructive coronary artery disease given her exertional symptoms -In the meantime, we will perform a chest x-ray to ensure no vascular congestion and to obtain a proBNP along with thyroid panel and CBC/CMP given her symptoms Hypertension -Very well-controlled on lisinopril 2.5 mg p.o. daily Hyperlipidemia -Continue pravastatin 20 mg every evening Return to clinic in 6 months Beltran Sanchez MD Voice recognition software was used to complete this document, therefore, autism motor specialist variances may occur. documented in this encounter Plan of Treatment Scheduled Orders Name Type Priority Associated Diagnoses Order Schedule Transthoracic Echo (TTE) Complete W Doppler/CF Echocardiography Routine Severe aortic stenosis Expected: 05/29/2025 (Approximate), Expires: 08/27/2025 Pulmonary Function Test -External PFT Routine Severe aortic stenosis Ordered: 02/26/2025 CBC with auto differential Lab Routine Severe aortic stenosis Expected: 03/01/2025, Expires: 02/26/2026 Comprehensive metabolic panel Lab Routine Severe aortic stenosis Expected: 03/01/2025, Expires: 02/26/2026 Pro B-type natriuretic peptide Lab Routine Severe aortic stenosis Expected: 03/01/2025, Expires: 02/26/2026 TSH+Free T4 Lab Routine Severe aortic stenosis Ordered: 02/26/2025 XR Chest PA Lateral 2 Views Imaging Schedule Routine, Read Routine (OP Routine) Severe aortic stenosis Expected: 02/26/2025, Expires: 02/26/2026 documented as of this encounter Visit Diagnoses Diagnosis Severe aortic stenosis- Primary Aortic valve disorders documented in this encounter Care Teams Sound Recordist Relationship Specialty Start Date End Date Ata Rivers DO PCP - General Internal Medicine 12/13/23 documented as of this encounter
--- NOTE | ~2025-02-27 | XR_ITS ---
EXAMINATION: XR chest 2V 02/27/2025 08:19 INDICATION: Severe aortic stenosis. PROCEDURE: 2 view chest COMPARISON: Comparison to multiple prior studies sequentially, with oldest reviewed study dated 11/28/2008. FINDINGS: The lungs are clear. The cardiomediastinal silhouette is within normal limits. There are no pleural effusions. There is no pneumothorax suspected. Moderate size hiatal hernia. IMPRESSION: 1: NO ACUTE CARDIOPULMONARY DISEASE. Reviewed, dictated and finalized at location C.
--- OUTSIDE RECORDS SUMMARY | 2025-02-27 08:05 | XMS_ITS | Patient Health Record ---
Author Organization [facility] Address [address] [facility]. [address] [place] [address] Care Team Providers Care Internal Communications Intern Name Role Phone Ata Rivers DO Primary Care Provider Jonathan hennessy Reason For Referral No Information Plan Of Treatment No Information Insurance Providers Payer Name Payer Address Payer Phone Subscriber Number Group Number Insured Name Patient Relationship to Insured Coverage Start Date Coverage End Date Blue Access Choice PPO [id number] [place] [address] [id number] Breanna Adame Self - patient is the insured
--- OUTSIDE RECORDS SUMMARY | 2025-02-27 08:05 | XMS_ITS | Clinical Summary ---
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 Will continue to observe. Encounters Date Type Department Care Team Description 02/26/2025 10:15 AM CDT Office Visit [facility] [address] [place] [address] Niyah Sanchez MD Severe aortic stenosis (Primary Dx) 02/06/2025 9:15 AM CDT Ancillary Procedure [facility] Cardiology at [address] [place] [address] Moderate aortic stenosis 02/06/2025 Results Follow-Up [facility] [address] [place] [address] Ruth Castellano RN Transthoracic Echo (TTE) Complete W Doppler/CF from Last 3 Months Immunizations Immunization Administration Dates Next Due ZOSTER [...] on file 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 Gender Identity Not on file Sexual Orientation Not on file Obstetrics History Last Filed Vital Signs Vital Sign Reading Time Taken Comments Blood Pressure 124/80 02/26/2025 10:00 AM CDT Pulse 97 02/26/2025 10:00 AM CDT Temperature 36.3 C (97.4 F) 08/28/2024 8:59 AM CDT Respiratory Rate 17 09/28/2021 2:30 AM CDT Oxygen Saturation 97% 02/26/2025 10: 00 AM CDT Inhaled Oxygen Concentration - - Weight 79.7 kg (175 lb 11.2 oz) 025 10:00 AM CDT Height 162.6 cm (5' 4) 02/26/2025 10:0 0 AM CDT Body Mass Index 30.16 02/26/2025 10:00 AM CDT Plan of Treatment Health Maintenance Due Date Last Done Comments Depression Screening 1945 Osteoporosis Screening-Bone Density Scan 1945 DTaP/Tdap/Td Vaccine (1 - Tdap) 1957 Pneumococcal vaccine 65+ (1 of 1 - PCV) 01/26/1996 Well Visit 65+ 2011 Fall Risk Assessment 09/27/2022 09/27/2021 Covid-19 Vaccine (3 - 2024-2 6 season) 2024 04/06/2023, 11/09/2021 Influenza Vaccine (#1) 2024 , 01/26/2022, 02/11/2021, Additional history exists Zoster Vaccine Completed 08/10/2022, 05/03, 07/01/2012 Hepatitis B Screening Completed 08/24/2023 Hepatitis C Screening Completed 08/24/2023 Procedures Procedure Name Priority Date/Time Associated Diagnosis Comments TRANSTHORACIC ECHO (TTE) COMPLETE W DOPPLER/CF WO CONTRAST Routine 02/06/2025 9:48 AM CDT Moderate aortic stenosis HEPATITIS C ANTIBODY Routine 08/24/2023 8:56 AM CDT Polymyalgia rheumatica syndrome High risk medication use from Last 3 Months or Most Recently Relevant to Health Maintenance Results * TRANSTHORACIC ECHO (TTE) COMPLETE W DOPPLER/CF WO CONTRAST (02/06/2025 9:48 AM CDT) Estimated EF 65 % CONS SCIMAGE EF Mod BP 55 % CONS SCIMAGE Anatomical Region Laterality Modality Ultrasound 02/06/2025 9:20 AM CDT Narrative 02/06/2025 1:04 PM CDT [facility] [address], [address], [place] [address] P:[phone] P:[phone] Echocardiographic Report Patient Name: BREANNA BEACH A : 1945 Study Date: 02/06/2025 9:20:32 AM Sex: F Senior Etl Developer: MADALYN Location: [facility] Ref Provider: NIYAH SANCHEZ Height(Cm): 163 BSA: 1.94 Weight(Kg): 83 Heart Rate: 81 BP: 143 / 78 Quality: Good Order Provider: NIYAH SANCHEZ PROCEDURES: Echocardiographic Report: Transthoracic echocardiogram with complete 2D, M-Mode, and color Doppler examination. With Strain Analysis. INDICATIONS: I35.0 Nonrheumatic aortic (valve) stenosis. MEASUREMENTS: 2D/MM Value Range Doppler Value Range EF Mod BP 55 % [ 54 - 74 ] MOSES Vmax 0.97 cm2 [ 2.00 - 4.00 ] EF Teich MM 68 % [ 54 - 74 ] AV Mean PG 36 mmHg Estimated EF 65 % AV Peak Jesus 3.88 m/s [ 1.00 - 1.70 ] LV GLS -15.96 % AV Peak PG 60 mmHg LVIDd 2D 4.16 cm [ 3.80 - 5.20 ] AV VTI 91.52 cm LVIDd MM 4.87 cm [ 3.80 - 5.20 ] LVOT Diam 2.04 cm [ 1.70 - 2.10 ] LVIDs 2D 2.57 cm [ 2.20 - 3.50 ] LVOT Peak Jesus 1.15 m/s [ 0.70 - 1.10 ] LVIDs MM 3.03 cm [ 2.20 - 3.50 ] LVOT VTI 26.01 cm LVPWd 2D 1.15 cm [ 0.60 - 0.90 ] MV E Peak Jesus 0.54 m/s [ 0.60 - 1.30 ] LVPWd MM 0.92 cm [ 0.60 - 0.90 ] MV A Peak Jesus 1.26 m/s [ 1.00 - 1.20 ] IVSd 2D 1.22 cm [ 0.60 - 0.90 ] MV Decel Time 174 msec [ 104 - 258 ] IVSd MM 0.86 cm [ 0.60 - 0.90 ] PV Peak Jesus 1.22 m/s [ 0.40 - 0.80 ] LA Dimension MM 2.88 cm [ 2.70 - 3.80 ] TR Peak Jesus 1.98 m/s [ 1.00 - 2.80 ] AoR Diam MM 3.40 cm [ 2.70 - 3.70 ] TR Peak PG 16 mmHg LA Volume 46.65 ml [ 22.00 - 52.00 ] RVSP 26.00 mmHg [ 10.00 - 36.00 ] LA Volume Index 24 cc/m2 [ 16 - 28 ] RV S` 0.10 m/s ACS MM 0.92 cm Lateral E` 0.05 m/s [ 0.10 - 0.15 ] RA Volume 33.55 ml Septal E` 0.04 m/s [ 0.08 - 0.15 ] E` 0.05 m/s E/E` 12 Tapse 1.93 cm [ 1.71 - 5.00 ] 2D/MM Value Range Doppler Value Range - FINDINGS: Interpretation Site: Exam was interpreted at [facility]. Left Ventricle: Normal left ventricular systolic function. No focal wall motion abnormalities. Normal left ventricular size. Moderate concentric left ventricular hypertrophy. Impaired diastolic relaxation Grade I. Ejection Fraction is visually estimated to be 65 %. Global Longitudinal Strain is -16 %. GLS is borderline. Right Ventricle: Normal right ventricular size. Normal right ventricular systolic function. Left Atrium: There is mild enlargement of left atrium. Right Atrium: The right atrium is normal in size. Atrial Septum: Aneurysmal atrial septum. Mitral Valve: Normal appearance of the mitral valve. Mild mitral valve regurgitation. There is no hemodynamically significant mitral stenosis by Doppler. Aortic Valve: Severe aortic stenosis. Peak Velocity of 3.88 m/s. Peak gradient of 60.0 mmHg. Mean gradient of 36.0 mmHg. Valve area of 0.97 cm2. Aortic cusps appear severely calcified. Trileaflet aortic valve. Mild aortic valve regurgitation. Tricuspid Valve: Normal appearance of the tricuspid valve. Normal right ventricular systolic pressure. Estimated peak RVSP is 26 mmHg. Mild tricuspid regurgitation. Pulmonic Valve: Normal appearance of the pulmonic valve. No pulmonic stenosis. Mild pulmonic regurgitation. Pericardium: Normal pericardium with no significant pericardial effusion. Aorta: No aortic root dilation. Mild aortic root calcification. IVC: Normal size and normal respiratory collapse consistent with normal right atrial pressure (<5 mmHg). CONCLUSIONS: Normal left ventricular systolic function. No focal wall motion abnormalities. Normal left ventricular size. Moderate concentric left ventricular hypertrophy. Impaired diastolic relaxation Grade I. Ejection Fraction is visually estimated to be 65 %. Global Longitudinal Strain is -16 %. GLS is borderline. There is mild enlargement of left atrium. Mild mitral valve regurgitation. Severe aortic stenosis. Peak Velocity of 3.88 m/s. Peak gradient of 60.0 mmHg. Mean gradient of 36.0 mmHg. Valve area of 0.97 cm2. Aortic cusps appear severely calcified. Trileaflet aortic valve. Mild aortic valve regurgitation. Mild tricuspid regurgitation. Mild pulmonic regurgitation. Normal sinus rhythm. Electronically Signed By: Tangela Pearson MD 02/06/2025 1:03:53 PM CDT Procedure Note Tangela Pearson MD - 02/06/2025 [facility] [address], [address], [place] [address] P:[phone] P:[phone] Echocardiographic Report Patient Name: BREANNA BEACH A : 1945 Study Date: 02/06/2025 9:20:32 AM Sex: F Senior Etl Developer: MADALYN Location: [facility] Ref Provider: NIYAH SANCHEZ Height(Cm): 163 BSA: 1.94 Weight(Kg): 83 Heart Rate: 81 BP: 143 / 78 Quality: Good Order Provider: NIYAH SANCHEZ PROCEDURES: Echocardiographic Report: Transthoracic echocardiogram with complete 2D, M-Mode, and color Dopplerexamination. With Strain Analysis. INDICATIONS: I35.0 Nonrheumatic aortic (valve) stenosis. MEASUREMENTS: 2D/MM Value Range Doppler ValueRange EF Mod BP 55 % [ 54 - 74 ] MOSES Vmax 0.97cm2 [ 2.00 - 4.00 ] EF Teich MM 68 % [ 54 - 74 ] AV Mean PG 36mmHg Estimated EF 65 % AV Peak Jesus 3.88m/s [ 1.00 - 1.70 ] LV GLS -15.96 % AV Peak PG 60mmHg LVIDd 2D 4.16 cm [ 3.80 - 5.20 ] AV VTI 91.52cm LVIDd MM 4.87 cm [ 3.80 - 5.20 ] LVOT Diam 2.04cm [ 1.70 - 2.10 ] LVIDs 2D 2.57 cm [ 2.20 - 3.50 ] LVOT Peak Jesus 1.15m/s [ 0.70 - 1.10 ] LVIDs MM 3.03 cm [ 2.20 - 3.50 ] LVOT VTI 26.01cm LVPWd 2D 1.15 cm [ 0.60 - 0.90 ] MV E Peak Jesus 0.54m/s [ 0.60 - 1.30 ] LVPWd MM 0.92 cm [ 0.60 - 0.90 ] MV A Peak Jesus 1.26m/s [ 1.00 - 1.20 ] IVSd 2D 1.22 cm [ 0.60 - 0.90 ] MV Decel Time 174msec [ 104 - 258 ] IVSd MM 0.86 cm [ 0.60 - 0.90 ] PV Peak Jesus 1.22m/s [ 0.40 - 0.80 ] LA Dimension MM 2.88 cm [ 2.70 - 3.80 ] TR Peak Jesus 1.98m/s [ 1.00 - 2.80 ] AoR Diam MM 3.40 cm [ 2.70 - 3.70 ] TR Peak PG 16mmHg LA Volume 46.65 ml [ 22.00 - 52.00 ] RVSP 26.00mmHg [ 10.00 - 36.00 ] LA Volume Index 24 cc/m2 [ 16 - 28 ] RV S` 0.10m/s ACS MM 0.92 cm Lateral E` 0.05m/s [ 0.10 - 0.15 ] RA Volume 33.55 ml Septal E` 0.04m/s [ 0.08 - 0.15 ] E` 0.05 m/s E/E` 12 Tapse 1.93 cm [ 1.71 - 5.00 ] 2D/MM Value Range Doppler ValueRange - FINDINGS: Interpretation Site: Exam was interpreted at [facility]. Left Ventricle: Normal left ventricular systolic function. No focal wall motionabnormalities. Normal left ventricular size. Moderate concentric left ventricular hypertrophy.Impaired diastolic relaxation Grade I. Ejection Fraction is visually estimated vonnie 65 %. Global Longitudinal Strain is -16 %. GLS is borderline. Right Ventricle: Normal right ventricular size. Normal right ventricular systolicfunction. Left Atrium: There is mild enlargement of left atrium. Right Atrium: The right atrium is normal in size. Atrial Septum: Aneurysmal atrial septum. Mitral Valve: Normal appearance of the mitral valve. Mild mitral valve regurgitation.There is no hemodynamically significant mitral stenosis by Doppler. Aortic Valve: Severe aortic stenosis. Peak Velocity of 3.88 m/s. Peak gradient of 60.0mmHg. Mean gradient of 36.0 mmHg. Valve area of 0.97 cm2. Aortic cusps appearseverely calcified. Trileaflet aortic valve. Mild aortic valve regurgitation. Tricuspid Valve: Normal appearance of the tricuspid valve. Normal right ventricularsystolic pressure. Estimated peak RVSP is 26 mmHg. Mild tricuspid regurgitation. Pulmonic Valve: Normal appearance of the pulmonic valve. No pulmonic stenosis. Mildpulmonic regurgitation. Pericardium: Normal pericardium with no significant pericardial effusion. Aorta: No aortic root dilation. Mild aortic root calcification. IVC: Normal size and normal respiratory collapse consistent with normal rightatrial pressure (<5 mmHg). CONCLUSIONS: Normal left ventricular systolic function. No focal wall motionabnormalities. Normal left ventricular size. Moderate concentric left ventricular hypertrophy.Impaired diastolic relaxation Grade I. Ejection Fraction is visually estimated vonnie 65 %. Global Longitudinal Strain is -16 %. GLS is borderline. There is mild enlargement of left atrium. Mild mitral valve regurgitation. Severe aortic stenosis. Peak Velocity of 3.88 m/s. Peak gradient of 60.0mmHg. Mean gradient of 36.0 mmHg. Valve area of 0.97 cm2. Aortic cusps appearseverely calcified. Trileaflet aortic valve. Mild aortic valve regurgitation. Mild tricuspid regurgitation. Mild pulmonic regurgitation. Normal sinus rhythm. Electronically Signed By: Tangela Pearson MD 02/06/2025 1:03:53 PM CDT us Niyah Sanchez MD CV ECHO PROCEDURES Final Result * Hepatitis C antibody Blood (08/24/2023 8:56 AM CDT) Pathologist [facility] Hep C Ab Non Reactive Non Reactive [facility] - 01 Comment: HCV antibody alone does not differentiate between previously resolved infection and active infection. Equivocal and Reactive HCV antibody results should be followed up with an HCV RNA test to support the diagnosis of active HCV infection. Blood 08/24/2023 8:56 AM CDT 08/24/2023 Narrative [facility] - 08/25/2023 11:13 AM CDT Performed at: - [address] [id number] Solar Energy Technician: Bg Hair PhD, Phone: [phone] us Yaneth Perdomo MD LAB MICROBIOLOGY - GENERAL OR DERABLES Final [facility] - 01 from Last 3 Months or Most Recently Relevant to Health Maintenance Insurance [facility] MEDIC[facility] ADVANT[facility] MEDIC[facility] Care Teams Game Room Attendant Relationship Specialty Start Date End Date Ata Rivers DO PCP - General Internal Medicine 12/13/23
--- OUTSIDE RECORDS SUMMARY | 2025-02-27 08:05 | XMS_ITS | Encounter Summary ---
Author Organization 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 Monthly or less 09/27/2021 11:28 PM CDT Swati Reynoso RN Q2: How many drinks containing alcohol do you have on a typical day when you are drinking? 1 or 2 09/27/2021 11:28 PM Annie Mariscal RN Q3: How often do you have six or more drinks on one occasion? Never 09/27/2021 11:28 PM MARIT Annie Reynoso RN documented as of this encounter Plan of Treatment Not on file documented as of this encounter Visit Diagnoses Not on filedocumented in this encounter Eye Exam Visual Acuity Right eye Left eye Near sc 20/200-2 phni 20/25 Tonometry (Tonopen, 7:42 PM) Right eye Left eye Pressure 16 16 Pupils Dark Light Shape React APD Right eye 5 3 Round Brisk None Left eye 5 3 Round Brisk None Visual Sevilla Right eye Left eye Full Restrictions Total inferior temporal, inferio r nasal deficiencies Extraocular Movement Right eye Left eye Full Full Dilation Both eyes: 1.0% Mydriacyl, 2 .5% Phenylephrine, 1.0% Cyclogyl @ 7:42 PM External Exam Right eye Left eye External Normal Normal Slit Lamp Exam Right eye Left eye Lids/Lashes Normal Normal Conjunctiva/Sclera White and quiet White and ivan et Cornea Clear Clear Anterior Chamber Deep and quiet Deep and quiet Iris Round and reactive Round and michael ctive Lens multifocal PCIOL s/p yag multifo jefferson PCIOL s/p yag Vitreous +Darby sign scattered pigmen portia cell in anterior vitreous, +PVD Fundus Exam Right eye Left eye Disc Normal, +PPA Normal, +PPA C/D Ratio 0.3 0.3 Macula detached Normal Vessels Normal Normal Periphery Horseshoe tear, 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
--- OUTSIDE RECORDS SUMMARY | 2025-02-27 08:05 | XMS_ITS | Patient Health Record ---
Author Organization [facility], Address [address] [facility] [address] [place] [address] Care Team Providers Care Preschool Education Director Name Role Phone Anaid WARNER, [facility] Primary Care Provider Rodolfo Palma Unavailable [phone] Reason For Referral No Information Medications Medication [...] Status W/U Status Risk Notes Problem Obesity (128239500) Other obesity (E66.8) Active confirmed Problem Arthralgia of the pelvic region and thigh (277009335) Pain in right hip (M25.551) Active confirmed Problem Pain of left hip joint (finding) (126437537709831 ) Pain in left hip (M25.552) Active confirmed Problem Pain of right knee region (finding) (346583750901773 ) Pain in right knee (M25.561) Active confirmed Problem Cervicalgia (26685546) Cervicalgia (M54.2) Active confirmed Problem Low back pain (001778512) Low back pain (M54.5) Active confirmed Plan [...] Coverage End Date [place] [id number] Breanna Adame Self - patient is the insured [facility] [address] [place], [place] [phone] [id number] Breanna Adame Self - patient is the [...]
== END 2025-02-27 07:59 | disposition home or self-care (01) ==
PROVIDERS: PCP Internal Medicine; Visit Provider Internal Medicine
DX: I35.0 Nonrheumatic aortic (valve) stenosis (principal)
CPT/HCPCS: 71046

== ENCOUNTER 2025-03-08 07:52 | Outpatient (CLI) | payer MEDICARE, SELFPAY ==
--- OUTSIDE RECORDS SUMMARY | 2025-03-08 07:59 | XMS_ITS | Encounter Summary ---
Author Organization [facility] Address [address] [place] [address] Phone Care Team Providers Care Payroll Benefits Clerk Name Role Phone No, Physician Primary Care Provider [phone] Ata Rivers DO Primary Care Provider Encounter Details Date Type Department Care Team (Late st Contact Info) Description 09/27/2021 Ophth Exam [facility] Medicine Ophthalmology [address] [place] [address] 1st [place] [phone] Noah Woods MD [address] [place] [address] Social History Tobacco Use Types [...] on file 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 Gender Identity Not on file Sexual Orientation Not on file documented as of this encounter Functional Status * Question Answer Date of Assessment Author BP Location Left arm 09/28/2021 1:40 AM Annie Cho RN BP Method Automatic 09/28/2021 1:40 AM Annie Cho RN MAP (mmHg) 90 09/28/2021 2:30 AM MARIT Annie Crum RN * Question Answer Date of Assessment Author Jocelyn Fall Risk Score (Score >= 45 places fall precaution order) 35 09/27/2021 11:28 PM Annie Mariscal RN * AUDIT-C Score Answer Date of Assessment Author 1 09/27/2021 11:28 PM Annie Mariscal RN * Alcohol Use Question Answer Date of Assessment Author Q1: How often do you have a drink containing alcohol? Monthly or less 09/27/2021 11:28 PM Swati Mariscal RN Q2: How many drinks containing alcohol do you have on a typical day when you are drinking? 1 or 2 09/27/2021 11:28 PM Annie Mariscal RN Q3: How often do you have six or more drinks on one occasion? Never 09/27/2021 11:28 PM Annie Mariscal RN * Fall Risk Assessment Tool - MEDFRAT Question Answer Date of Assessment Author History of falling in last 3 months, including since admission 0 09/27/2021 7:17 PM Jason Bermudez RN Confusion or disorientation 0 09/27/2021 7:17 PM Jason Bermudez RN Intoxicated or sedated 0 7:17 PM Jason Bermudez RN Impaired gait 0 09/27/2021 7:17 PM Jason Bermudez RN Mobility assist device used 0 09/27/2021 7:17 PM Jason Bermudez RN Altered elimination 0 09/27/2021 7 :17 PM Jason Bermudez RN Fall risk score: (1-2 low risk), (3-4 moderate risk), (5 or more high risk) 0 09/27/2021 7:17 PM Jason Bermudez RN Interventions - GENERAL USE as needed patient/family education 09/27/2021 7:17 PM Jason Bermudez RN * Integumentary Question Answer Date of Assessment Author Skin Color Appropriate for ethnicity 09/28/2021 1:40 AM CDT Annie Reynoso RN Skin Condition/Temp Warm;Dry 09/28/2021 1:40 AM Annie Brown RN Skin Integrity Surgical incision 09/28/2021 1:40 AM Annie Brown RN documented as of this encounter Mental Status * Neuro (WDL) Answer Entry Date Author WDL 09/27/2021 9:23 PM CDT Dee Dee Lee RN * Question Answer Entry Date Author Level of Consciousness Awake 2:30 AM MARIT Annie Reynoso RN Orientation Oriented X4 (person, place, time, situation) 09/28/2021 2:30 AM MARIT Annie Reynoso RN documented in this encounter Plan of Treatment Not on [...] yag multifo jefferson PCIOL s/p yag Vitreous +Stuart sign scattered pigmen portia cell in anterior [...] atrophic retinal breaks with HST Care Teams Payroll Benefits Clerk Relationship Specialty Start Date End Date No, Physician PCP - General 09/27/21 12/12/23 Ata Rivers DO PCP - General Internal Medicine 12/13/23 documented as of this encounter
--- OUTSIDE RECORDS SUMMARY | 2025-03-08 08:00 | XMS_ITS | Patient Health Record ---
Author Organization [facility], Address [address] [facility] [address] [place] [address] Care Team Providers Care Director Global Name Role Phone Anaid WARNER, [facility] Primary Care Provider Rodolfo Palma Unavailable [phone] Reason For Referral No Information Medications Medication [...] Status W/U Status Risk Notes Problem Obesity (477559692) Other obesity (E66.8) Active confirmed Problem Arthralgia of the pelvic region and thigh (014200793) Pain in right hip (M25.551) Active confirmed Problem Pain of left hip joint (finding) (678585780253633 ) Pain in left hip (M25.552) Active confirmed Problem Pain of right knee region (finding) (614394804576995 ) Pain in right knee (M25.561) Active confirmed Problem Cervicalgia (11933339) Cervicalgia (M54.2) Active confirmed Problem Low back pain (866721306) Low back pain (M54.5) Active confirmed Plan [...] Coverage End Date [place] [id number] Breanna Adame Self - patient is the insured [facility] [address] [place], [place] [phone] [id number] Breanna Adame Self - patient is the [...]
--- OUTSIDE RECORDS SUMMARY | 2025-03-08 08:00 | XMS_ITS | Encounter Summary ---
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
--- OUTSIDE RECORDS SUMMARY | 2025-03-08 08:00 | XMS_ITS | Patient Health Record ---
Author Organization [facility] Address [address] [facility]. [address] [place] [address] Care Team Providers Care Finisher Accordion Name Role Phone Ata Rivers DO Primary Care Provider Jonathan hennessy Reason For Referral No Information Plan Of Treatment No Information Insurance Providers Payer Name Payer Address Payer Phone Subscriber Number Group Number Insured Name Patient Relationship to Insured Coverage Start Date Coverage End Date [employer] PPO [address] [place] [address] [id number] Breanna Adame Self - patient is the insured
--- OUTSIDE RECORDS SUMMARY | 2025-03-08 08:01 | XMS_ITS | Clinical Summary ---
Author Organization [facility] Address [address] [place] [address] Care Team Providers Care Eyelet Row Marker Name Role Phone Ata Rivers DO Primary [...] mg tablet 7 Active cholecalciferol (VITAMIN D-3) 58466 unit capsule Take 1 capsule (10,000 Units [...] Encounters Date Type Department Care Team Description 02/28/2025 Results Follow-Up [facility] Cardiology [address] [place] [address] Ruth Castellano RN CBC with auto differential, Comprehensive metabolic panel, B-type natriuretic peptide 02/27/2025 Orders Only [facility] [address] [place], [place] [id number] Niyah Sanchez MD 02/27/2025 Orders Only [facility]iology [address] [facility] [address] [place] [address] Niyah Sanchez MD 02/27/2025 Orders Only [facility] Cardiology [address] [place] [address] [address] [place] [address] Niyah Sanchez MD 02/26/2025 10:15 AM CDT Office Visit [facility] Cardiology [address] [place] [address] [address] [place] [address] Niyah Sanchez MD Severe aortic stenosis (Primary Dx) 02/06/2025 9:15 AM CDT Ancillary Procedure [facility] Cardiology at [address] [place] [address] Moderate aortic stenosis 02/06/2025 Results Follow-Up [facility]iology [address] [place] [address] [address] [place] [address] Ruth Castellano, RN Transthoracic Echo (TTE) Complete W Doppler/CF [...] on file Legal Sex Female 10:54 AM 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 Gender Identity Not on file Sexual Orientation Not on file Last Filed Vital Signs Vital Sign Reading [...] 1945 DTaP/Tdap/Td Vaccine (1 - Tdap) 1956 Hepatitis B Screening 01/26/1964 Pneumococcal vaccine 65+ (1 of 1 - PCV) 01/26/1996 Well Visit 65+ 2011 Fall Risk Assessment 09/27/2022 09/27/2021 Covid-19 Vaccine (3 - 2024-2 6 season) 2024 04/06/2023, 11/09/2021 Influenza Vaccine (#1) 2024 , 01/26/2022, 02/11/2021, Additional history exists Zoster Vaccine Completed 08/10/2022, 05/03, 07/01/2012 Hepatitis C Screening Completed 08/24/2023 Procedures Procedure Name Priority Date/Time Associated Diagnosis Comments TSH+FREE T4 Routine 02/27/2025 9:11 AM CDT B-TYPE NATRIURETIC PEPTIDE Routine 02/27/2025 9:11 AM CDT COMPREHENSIVE METABOLIC PANEL Routine 02/27/2025 9:11 AM CDT CBC WITH AUTO DIFFERENTIAL Routine 02/27/2025 9:11 AM CDT SCAN - RADIOLOGY/IMAGING 02/27/2025 TRANSTHORACIC ECHO (TTE) COMPLETE W DOPPLER/CF WO CONTRAST Routine 02/06/2025 9:48 AM CDT Moderate aortic stenosis HEPATITIS C ANTIBODY Routine 08/24/2023 8:56 AM CDT Polymyalgia rheumatica syndrome High risk medication use from Last 3 Months or Most Recently Relevant to Health Maintenance Results * (ABNORMAL) TSH+Free T4 (02/27/2025 9:11 AM CDT) Pathologist [facility] TSH 0.421(L) 0.450 - 4.500 uIU/mL [facility] - 01 T4,Free(Direct ) 1.40 0.82 - 1.77 ng/dL [facility] - 01 02/27/2025 9:11 AM CDT 02/27/2025 Narrative [facility] - 02/28/2025 2:08 AM CDT Performed at: [facility] [id number] Ornamental Plasterer Helper: Bg Hair PhD, Phone: [phone] us Niyah Sanchez MD LAB BLOOD ORDERABLES Final Resul t [facility] - 01 * CBC with auto differential (02/27/2025 9:11 AM CDT) Pathologist [facility] WBC 8.3 3.4 - 10.8 x10E3/uL [facility] - 01 RBC 4.50 3.77 - 5.28 x10E6/uL [facility] - 01 Hgb 13.4 11.1 - 15.9 g/dL [facility] - 01 Hct 41.1 34.0 - 46.6 % [facility] - 01 MCV 91 79 - 97 fL [facility] - 01 MCH 29.8 26.6 - 33.0 pg [facility] - 01 MCHC 32.6 31.5 - 35.7 g/dL [facility] - 01 Rdw 13.1 11.7 - 15.4 % [facility] - 01 Platelets 371 150 - 450 x10E3/uL [facility] - 01 Neutrophils pct 61 Not Estab. % [facility] - 01 Lymphs pct 30 Not Estab. % [facility] - 01 Monocytes pct 6 Not Estab. % [facility] - 01 Eosinophils pct 2 Not Estab. % [facility] - 01 Basophil pct 1 Not Estab. % [facility] - 01 Neutrophil abs 5.1 1.4 - 7.0 x10E3/uL [facility] - 01 Lymphs (Absolute) 2.5 0.7 - 3.1 x10E3/uL [facility] - 01 Monocyte abs 0.5 0.1 - 0.9 x10E3/uL [facility] - 01 Eosinophils, abs 0.2 0.0 - 0.4 x10E3/uL [facility] - 01 Basophils, abs 0.1 0.0 - 0.2 x10E3/uL [facility] - 01 Immature Granulocytes 0 Not Estab. % [facility] - 01 Immature Grans (Abs) 0.0 0.0 - 0.1 x10E3/uL [facility] - 01 02/27/2025 9:11 AM CDT 02/27/2025 Narrative [facility] - 02/27/2025 11:08 PM CDT Performed at: - [facility] [id number] [employer]nament[employer] Plasterer Helper: Bg Hair PhD, Phone: [phone] us Niyah Sanchez MD LAB BLOOD ORDERABLES Final Resul t [facility] - 01 * B-type natriuretic peptide (02/27/2025 9:11 AM CDT) Pathologist [facility] B-Type Natriuretic Peptide 54.4 0.0 - 100.0 pg/mL [facility] - 01 Comment:[employer] XP methodology 02/27/2025 9:11 AM CDT 02/27/2025 Narrative [facility] - 02/28/2025 11:11 AM CDT Performed at: [address] [place] [id number] Ornamental Plasterer Helper: Bg Hair PhD, Phone: [phone] us Niyah Sanchez MD LAB BLOOD ORDERABLES Final Resul t [facility] - 01 * (ABNORMAL) Comprehensive metabolic panel (02/27/2025 9:11 AM CDT) Glucose 76 70 - 99 mg/dL [facility] - 01 BUN 10 8 - 27 mg/dL [facility] - 01 Creatinine, Serum 0.80 0.57 - 1.00 mg/dL [facility] - 01 eGFR 75 >59 mL/min/1.7 3 [facility] - 01 BUN/creat ratio 13 12 - 28 [facility] - 01 Sodium 142 134 - 144 mmol/L [facility] - 01 Potassium, sr 4.0 3.5 - 5.2 mmol/L [facility] - 01 Chloride 104 96 - 106 mmol/L [facility] - 01 CO2 25 20 - 29 mmol/L [facility] - 01 Calcium 9.7 8.7 - 10.3 mg/dL [facility] - 01 Protein, sr 6.5 6.0 - 8.5 g/dL [facility] - 01 Albumin 3.9 3.8 - 4.8 g/dL [facility] - 01 Globulin, Total 2.6 1.5 - 4.5 g/dL [facility] - 01 Bilirubin, Total 0.7 0.0 - 1.2 mg/dL [facility] - 01 Alk phos 154(H) 49 - 135 IU/L [facility] - 01 AST 22 0 - 40 IU/L [facility] - 01 ALT 22 0 - 32 IU/L [facility] - 01 02/27/2025 9:11 AM CDT 02/27/2025 Narrative [facility] - 02/28/2025 1:07 AM CDT Performed at: - [address], [place], [place] [id number] Ornamental Plasterer Helper: Bg Hair PhD, Phone: [phone] us Niyah Sanchez MD LAB BLOOD ORDERABLES Final Resul t [facility] - 01 * SCAN - RADIOLOGY/IMAGING (02/27/2025) Anatomical Region Laterality Modality Other Niyah Sanchez MD Final Result * TRANSTHORACIC ECHO (TTE) COMPLETE W DOPPLER/CF WO CONTRAST (02/06/2025 9:48 AM CDT) Estimated EF 65 % CONS SCIMAGE EF Mod BP 55 % CONS SCIMAGE Anatomical Region Laterality Modality Ultrasound 02/06/2025 9:20 AM CDT Narrative 02/06/2025 1:04 PM CDT [facility], [address], [place] [address] P:[phone] P:[phone] Echocardiographic Report Patient Name: BREANNA BEACH A : 1945 Study Date: 02/06/2025 9:20:32 AM Sex: F Processing Technician: MADALYN Location: [facility] Ref Provider: NIYAH SANCHEZ [...] [ 2.20 - 3.50 ] LVOT Peak Jseus 1.15 m/s [ 0.70 - 1.10 ] [...] [ 0.60 - 0.90 ] PV Peak Ejsus 1.22 m/s [ 0.40 - 0.80 ] [...] FINDINGS: Interpretation Site: Exam was interpreted at [facility]. Left Ventricle: Normal left ventricular systolic [...] Procedure Note Tangela Pearson MD - 02/06/2025 [facility] [address], [address], [place] [address] P:[phone] P:[phone] Echocardiographic Report Patient Name: BREANNA BEACH A : 1945 Study Date: 02/06/2025 9:20:32 AM Sex: F Processing Technician: MADALYN Location: [facility] Ref Provider: NIYAH SANCHEZ [...] FINDINGS: Interpretation Site: Exam was interpreted at [facility]. Left Ventricle: Normal left ventricular systolic [...] Tangela Pearson MD 02/06/2025 1:03:53 PM CDT Niyah Sanchez MD CV ECHO PROCEDURES Final Result * Hepatitis C antibody Blood (08/24/2023 8:56 AM CDT) Hep C Ab Non Reactive Non Reactive [facility] - 01 Comment: HCV antibody alone does not differentiate between previously resolved infection and active infection. Equivocal and Reactive HCV antibody results should be followed up with an HCV RNA test to support the diagnosis of active HCV infection. Blood 08/24/2023 8:56 AM CDT 08/24/2023 Narrative [facility] - 08/25/2023 11:13 AM CDT Performed at: - [facility] [address] [id number] Ornamental Plasterer Helper: Bg Hair PhD, Phone: [phone] us Yaneth Perdomo MD LAB MICROBIOLOGY - GENERAL OR DERABLES Final Result [facility] - 01 from Last 3 Months or Most Recently Relevant to Health Maintenance Insurance [facility] MEDICARE [facility] Address: [address] [address] [employer] MEDICARE [facility] Address: [facility] [address] [place] [address] Care Teams Eyelet Row Marker Relationship Specialty Start Date End Date Ata Rivers DO PCP - General Internal Medicine 12/13/23
--- NOTE | 2025-03-11 16:01 | WPDPFTINT ---
PFT Procedure Performed PFT Procedure Performed Plethysmography (Lung Vol) Diffusing Cap (DLCO) Flow Vol Loop Spirometry w/o Bronchodil PFT Interpretation This is a pulmonary function test with spirometry, plethysmography and diffusing capacity. The test was performed and results interpreted in accordance with the 2019 and 2005 ATS/ERS Task Force guidelines respectively using the Global Lung Function Initiative-2012 reference equations. Patient demonstrated good effort and cooperation. Reproducibility criteria were met. The quality of the spirometry maneuver was Grade A. Findings: Spirometry: The contour the inspiratory and expiratory flow tracing are normal. The FVC is 2.58 L, 100% predicted. The FEV1 is 1.88 L, 96% predicted. The FEV1: FVC ratio 73%. Plethysmography: The total lung capacity is 4.70 L, 93% predicted. The functional residual capacity is 2.51 L, 86% predicted. The residual volume is 2.12 L, 89% predicted. Diffusing capacity: The diffusing capacity unadjusted for hemoglobin and carboxyhemoglobin is 14.4, 74% predicted. The diffusing capacity adjusted for alveolar volume is 3.73, 90% predicted. Impression: The spirometry is normal without evidence of an obstructive abnormality. The lung volumes are normal. The diffusing capacity is normal. There are no prior studies for comparison
== END 2025-03-08 07:53 | disposition home or self-care (01) ==
PROVIDERS: PCP Internal Medicine; Visit Provider Internal Medicine
DX: I35.0 Nonrheumatic aortic (valve) stenosis (principal)
CPT/HCPCS: 94375; 94726; 94729